=== PATIENT | male | born 1940 | race Asian ===

== ENCOUNTER 2018-01-02 21:23 | Inpatient (IN) | payer OTHER ==
[~2018-01-02] VITALS: Ht 175.3 cm; Wt 71.8 kg
[~2018-01-02 21:23] MED LIST: AMIT10TA PO; AMLO5TAB4 PO; AMLO5TAB7 PO; APIX5TAB PO; ASPI-650 PO; ATOR40TA78 PO; CARV6.2512 PO; FLUC100T4 PO; LEVO75TA PO; METO25TA35 PO; MYCO250C PO; MYCO250C4 PO; MYCO500T3 PO; NITR0.4T SL; OMEP-110 PO; OXYC-432 PO; OXYC10TA6 PO; PRED10TA PO; PRED5TAB27 PO; TACR0.5C4 PO; TACR1CAP4 PO; TEMA30CA6 PO
[2018-01-02 22:28] LABS: BASOPHILS # (AUTO) 0.08 x10^3/uL (0-0.1); BASOPHILS % (AUTO) 1 % (0-1); EOSINOPHILS # (AUTO) 0.04 x10^3/uL (0-0.4); EOSINOPHILS % (AUTO) 1 % (1-7); LYMPHOCYTES # (AUTO) 2.33 x10^3/uL (1-3.4); LYMPHOCYTES % (AUTO) 29 % (22-44); MD NO; MEAN CORPUSCULAR HEMOGLOBIN 29.5 pg (27.5-34.5); MEAN CORPUSCULAR HGB CONC 32.6 g/dL (33.2-36.2); MEAN CORPUSCULAR VOLUME 90.6 fL (81-97); MEAN PLATELET VOLUME 7.9 fL (7.4-10.4); MONOCYTES # (AUTO) 0.78 x10^3/uL (0.2-0.8); MONOCYTES % (AUTO) 10 % (2-9); NEUTROPHILS # (AUTO) 4.93 x10^3/uL (1.8-6.8); NEUTROPHILS % (AUTO) 60 % (42-75); PLATELET COUNT 249 x10^3/uL (130-400); RED BLOOD COUNT 4.39 x10^6/uL (4.38-5.82); RED CELL DISTRIBUTION WIDTH 14.2 % (9.4-14.8)
[2018-01-02 22:38] LABS: ALBUMIN 3.5 g/dL (3.4-5.0); ANION GAP 6 mmol/L (5-15); CALCIUM 9.1 mg/dL (8.5-10.1); CHLORIDE 108 mmol/L (98-107)
[2018-01-02 22:43] LABS: ALANINE AMINOTRANSFERASE 15 U/L (12-78); ALKALINE PHOSPHATASE 78 U/L (45-117); BILIRUBIN,TOTAL 0.4 mg/dL (0.2-1.0); CREATININE 1.39 mg/dL (0.7-1.3); TOTAL PROTEIN 6.8 g/dL (6.4-8.2); TROPONIN I < 0.015 ng/mL (0.000-0.045)
[2018-01-02 22:50] LABS: MICROSCOPIC NOT IND
[2018-01-02 22:51] LABS: CULTURE INDICATED? NO
[2018-01-02] MEDS ORDERED: MORPHINE SULFATE 4 MG/ML, 1ML ONE (23:52)
[2018-01-03] MEDS ORDERED: MORPHINE SULFATE 4 MG/ML, 1ML IVPush PRN
[2018-01-03] MEDS ORDERED: ASPIRIN 81 MG TABLET CHEW ONE (01:08)
[2018-01-03] MEDS ORDERED: ASPIRIN 81 MG TABLET CHEW PO ONE (01:30)
[2018-01-03 01:55] VITALS: BP 194/115
[2018-01-03] MEDS ORDERED: SODIUM CHLORIDE 0.9% 1,000 ML IV SCH (02:13)
[2018-01-03] MEDS ORDERED: POLYETHYLENE GLYCOL 17 GM PACKET PO PRN (02:30)
[2018-01-03] MEDS ORDERED: ONDANSETRON 2MG/ML, 2ML IVPush PRN (02:30)
[2018-01-03] MEDS ORDERED: BISACODYL 10 MG SUPP PR PRN (02:30)
[2018-01-03] MEDS ORDERED: DOCUSATE 100 MG CAPSULE PO PRN (02:30)
[2018-01-03] MEDS ORDERED: OXYcodone IR 5MG TABLET PO PRN (02:30)
[2018-01-03] MEDS ORDERED: PROMETHAZINE 25 MG/ML, 1ML IM PRN (02:30)
[2018-01-03] MEDS ORDERED: ACETAMINOPHEN 325 MG TABLET PO PRN (02:30)
[2018-01-03] MEDS ORDERED: LABETALOL 5MG/ML, 20ML IVPush PRN (02:30)
[2018-01-03] MEDS ORDERED: ONDANSETRON ODT 4 MG PO PRN (02:30)
[2018-01-03] MEDS ORDERED: NITROGLYCERIN 0.4 MG BOTTLE (25 TABS) SL PRN (02:30)
[2018-01-03 02:50] VITALS: BP 160/100
[2018-01-03] MEDS: TEMAZEPAM 30 MG CAPSULE PO PRN ×2 (02:54→21:29)
[2018-01-03] MEDS: hydrALAzine 20 MG/ML, 1ML IVPush PRN (02:54)
[2018-01-03] MEDS: HYDROcodone/APAP 5/325 TABLET PO PRN ×3 (02:54→09:54)
[2018-01-03] MEDS: TACROLIMUS 0.5 MG CAPSULE PO SCH ×2 (02:54→15:22)
[2018-01-03] MEDS: HEPARIN 5,000 UNITS/ML, 1ML SQ SCH ×3 (02:55→17:48)
[2018-01-03 03:41] LABS: HEMOGLOBIN A1C 7.1 % (4.2-6.3)
[2018-01-03 03:43] LABS: FREE T4 (FREE THYROXINE) 1.09 ng/dL (0.76-1.46); THYROID STIMULATING HORMONE 0.88 mIU/L (0.358-3.740)
[2018-01-03] MEDS: morphine SULFATE 10 MG/ML, 1ML IVPush PRN ×5 (04:53→21:30)
[2018-01-03] MEDS: LEVOTHYROXINE 75 MCG TABLET PO SCH (05:29)
[2018-01-03] MEDS: ASPIRIN 325 MG TABLET EC PO SCH (05:29)
[2018-01-03 06:02] LABS: TROPONIN I < 0.015 ng/mL (0.000-0.045)
[2018-01-03 07:18] VITALS: BP 161/105
[2018-01-03 09:00] VITALS: BP 138/88
[2018-01-03] MEDS ORDERED: REGADENOSON 0.4 MG/5 ML SYRINGE ONE (11:14)
[2018-01-03 13:27] VITALS: BP 146/85
[2018-01-03 13:42] LABS: TROPONIN I < 0.015 ng/mL (0.000-0.045)
[2018-01-03 21:24] VITALS: BP 149/98
[2018-01-04 00:39] VITALS: BP 184/108
[2018-01-04] MEDS: HEPARIN 5,000 UNITS/ML, 1ML SQ SCH ×2 (01:57→10:30)
[2018-01-04] MEDS: morphine SULFATE 10 MG/ML, 1ML IVPush PRN ×2 (01:57→10:08)
[2018-01-04] MEDS: TACROLIMUS 0.5 MG CAPSULE PO SCH (01:57)
[2018-01-04 05:12] LABS: MEAN CORPUSCULAR HGB CONC 32.1 g/dL (33.2-36.2); MEAN CORPUSCULAR VOLUME 90.3 fL (81-97); PLATELET COUNT 266 x10^3/uL (130-400); RED BLOOD COUNT 4.86 x10^6/uL (4.38-5.82); RED CELL DISTRIBUTION WIDTH 14.5 % (9.4-14.8)
[2018-01-04 05:19] LABS: ALBUMIN 3.9 g/dL (3.4-5.0); CALCIUM 10.1 mg/dL (8.5-10.1); CHLORIDE 104 mmol/L (98-107)
[2018-01-04 05:23] LABS: ALANINE AMINOTRANSFERASE 18 U/L (12-78); ALKALINE PHOSPHATASE 70 U/L (45-117); ANION GAP 5 mmol/L (5-15); BILIRUBIN,TOTAL 0.9 mg/dL (0.2-1.0); CHOL/HDL RATIO 3.7; CHOLESTEROL, TOTAL 176 mg/dL (140-239); CREATININE 1.47 mg/dL (0.7-1.3); HDL CHOL % 27 % (26-37); HDL CHOLESTEROL (DIRECT) 48 mg/dL (40-60); LDL CHOLESTEROL,CALCULATED 85 mg/dL (54-169); LDL/HDL RATIO 1.8 (0.5-3.0); TOTAL PROTEIN 7.8 g/dL (6.4-8.2); TRIGLYCERIDES 216 mg/dL (50-200); VLDL CHOLESTEROL 43 mg/dL (0-25)
[2018-01-04] MEDS: ASPIRIN 325 MG TABLET EC PO SCH (05:37)
[2018-01-04] MEDS: LEVOTHYROXINE 75 MCG TABLET PO SCH (05:37)
[2018-01-04 05:49] LABS: BASOPHILS # (AUTO) 0.06 x10^3/uL (0-0.1); BASOPHILS % (AUTO) 1 % (0-1); EOSINOPHILS # (AUTO) 0.12 x10^3/uL (0-0.4); EOSINOPHILS % (AUTO) 1 % (1-7); LYMPHOCYTES # (AUTO) 2.66 x10^3/uL (1-3.4); LYMPHOCYTES % (AUTO) 30 % (22-44); MD SCAN; MONOCYTES # (AUTO) 1.12 x10^3/uL (0.2-0.8); MONOCYTES % (AUTO) 13 % (2-9); NEUTROPHILS # (AUTO) 5.03 x10^3/uL (1.8-6.8); NEUTROPHILS % (AUTO) 56 % (42-75)
[2018-01-04 08:00] VITALS: BP 151/112
[2018-01-04] MEDS: hydrALAzine 20 MG/ML, 1ML IVPush PRN (08:19)
[2018-01-04] MEDS ORDERED: AMLODIPINE 5 MG TABLET PO SCH (11:00)
[2018-01-04] MEDS ORDERED: AMLO5TAB7 PO (11:05)
[2018-01-04] MEDS ORDERED: AMLODIPINE 5 MG TABLET ONE (11:10)
[2018-01-04 12:20] VITALS: BP 153/110
[2018-01-04] MEDS ORDERED: OXYcodone IR 5MG TABLET PO PRN (13:00)
[2018-01-04 13:18] VITALS: BP 161/94
== END 2018-01-04 15:26 | disposition left against medical advice (07) | DRG 683 ==
LOC: ED 23:59 → EDIP 01-03 01:09 → 5SO 01-03 01:51
PROVIDERS: ADMIT Internal Medicine; ATTEND Internal Medicine
DX: N17.9 Acute kidney failure, unspecified (principal); I13.0 Hypertensive heart and chronic kidney disease with heart failure and stage 1 through stage 4 chronic kidney disease, or unspecified chronic kidney disease; I50.22 Chronic systolic (congestive) heart failure; E44.1 Mild protein-calorie malnutrition; Z94.0 Kidney transplant status; R07.89 Other chest pain; Z53.21 Procedure and treatment not carried out due to patient leaving prior to being seen by health care provider; N18.3 Chronic kidney disease, stage 3 (moderate); D63.8 Anemia in other chronic diseases classified elsewhere; E03.9 Hypothyroidism, unspecified; Z68.23 Body mass index [BMI] 23.0-23.9, adult; K21.9 Gastro-esophageal reflux disease without esophagitis; Z86.711 Personal history of pulmonary embolism; Z90.81 Acquired absence of spleen; Z88.8 Allergy status to other drugs, medicaments and biological substances
CPT/HCPCS: 36415; 71045; 71250; 78452; 80053; 80061; 81003; 82533; 83036; 83735; 83880; 84439; 84443; 84484; 85025; 87040; 93005; 93017; 93306; 96374; G0378; J1644; J2785; J7507; J7517; A9502; C9898; J0360; J2270; J7030

== ENCOUNTER 2018-08-30 09:52 | Outpatient (CLI) | payer MEDICARE ==
[~2018-08-30 09:52] MED LIST changes: +AMLO-150 PO; -AMLO5TAB7 PO; -NITR0.4T SL; +NITR0.4T41 SL
== END 2018-08-30 23:59 | disposition home or self-care (01) ==
LOC: CFH 09:52
PROVIDERS: ATTEND Internal Medicine Cardiovascular Disease
DX: I08.8 Other rheumatic multiple valve diseases (principal); I11.9 Hypertensive heart disease without heart failure
CPT/HCPCS: 93306